=== PATIENT | female | born 1980 | race Caucasian/White ===

== ENCOUNTER 2017-02-05 23:32 | Emergency (ER) | payer BC ==
[~2017-02-05] VITALS: Ht 162.6 cm; Wt 86.2 kg
--- NOTE | 2017-02-05 23:58 | NUR ---
Dr. Ng at bedside for MSE
[2017-02-06 00:31] LABS: BASOPHILS # (AUTO) 0.1 K/uL (0.0-8.0); BASOPHILS % (AUTO) 0.5 % (0.0-2.0); EOSINOPHILS # (AUTO) 0.3 K/uL (0.0-0.7); HEMATOCRIT 36.5 % (37-47); HEMOGLOBIN 12.2 G/DL (12.0-16.0); LYMPHOCYTES % (AUTO) 27.9 % (20.5-51.5); MEAN CORPUSCULAR HEMOGLOBIN 27.1 UUG (27.0-31.0); MEAN CORPUSCULAR HGB CONC 34 g/dL (32.0-37.0); MONOCYTES % (AUTO) 8.8 % (0.0-11.0); NEUTROPHILS # (AUTO) 6.5 K/UL (1.8-8.9); NEUTROPHILS % (AUTO) 59.8 % (38.5-71.5); PLATELET COUNT (AUTO) 242 K/UL (150-450); WHITE BLOOD COUNT (AUTO) 10.9 K/UL (4.0-11.2)
[2017-02-06 00:41] LABS: CREATININE 0.9 mg/dL (0.6-1.3); POTASSIUM 3.7 mmol/L (3.5-5.1)
[2017-02-06 00:47] LABS: BILIRUBIN,DIRECT 0.1 mg/dL (0.0-0.2); BILIRUBIN,TOTAL 0.3 mg/dL (0.2-1.0); TOTAL PROTEIN, SERUM 7.9 g/dL (6.4-8.2)
--- NOTE | 2017-02-06 02:27 | NUR ---
Initial IV infiltrated. IV dc'd, catheter intact. Drsg applied. New IV established. ABT infusion started, will monitor for any adverse reactions. Pt resting in position of comfort for self. Family remains at bedside.
--- NOTE | 2017-02-06 03:47 | NUR ---
ABT infusion completed. Pt c/o itching to scalp, under her breasts and groin area. No redness or rash like discoloration noted anywhere on the body. Pt also started vomiting and developed the feeling of constipation. Dr. Ng notified, awaiting further orders.
--- NOTE | 2017-02-06 04:04 | NUR ---
Pt medicated for vomiting, will monitor for effects of medication.
--- NOTE | 2017-02-06 04:10 | NUR ---
Pt stable for discharge per Dr. Ng. IV dc'd, catheter intact. Drsg applied. No problems noted to site. Pt and given ACI. Both verbalized understanding of dc instructions. Pt ambulated out of ER with steady gait. Pt to return to ER in 12 hrs for a dose of Vanco IVBP. Pt verbalized understanding.
[2017-02-06 04:49] VITALS: BP 139/78
== END 2017-02-06 04:10 | disposition home or self-care (01) ==
LOC: ER 23:34
DX: L03.115 Cellulitis of right lower limb (principal)
CPT/HCPCS: 71010; 83690; 84703; 85025; 85610; 93005; A4663; J2405; J3370; J7030

== ENCOUNTER 2017-02-06 15:06 | Emergency (ER) | payer BC ==
[~2017-02-06] VITALS: Ht 154.9 cm; Wt 83.9 kg
--- NOTE | 2017-02-06 16:55 | NUR ---
Patient discharged to home in stable conditon. Written and verbal after care instructions given. Patient verbalizes understanding of instructions.
[2017-02-06 17:04] VITALS: BP 109/79
== END 2017-02-06 17:04 | disposition home or self-care (01) ==
LOC: ER 15:07
DX: L03.115 Cellulitis of right lower limb (principal)
CPT/HCPCS: A4663